=== PATIENT | female | born 1965 | race African-American/Black ===

== ENCOUNTER 2018-05-12 04:36 | Inpatient (IN) ==
[2018-05-12] MEDS ORDERED: ONDANSETRON 4 MG/2 ML VIAL IV STA (04:58)
[2018-05-12] MEDS ORDERED: MORPHINE 4 MG/1 ML VIAL IV STA (04:58)
[2018-05-12] MEDS ORDERED: ALUM/MAG/SIMETH/LIDO VISC 1:1 30 ML BOTTLE PO STA (04:58)
[2018-05-12] MEDS ORDERED: ASPIRIN 325 MG TABLET PO STA (04:58)
[2018-05-12] MEDS ORDERED: NITROGLYCERIN 2% OINT 1 INCH/GM PACK TOP STA ×2 (04:58→05:41)
[2018-05-12] MEDS ORDERED: PANTOPRAZOLE 40 MG VIAL IV STA (05:02)
[2018-05-12 05:18] LABS: Basophils % 0.3 % (0.0-0.8); Eosinophils # 0.1 10*3/uL (0.0-0.87); Eosinophils % 1.1 % (0.00-10.9); Hematocrit 38.4 VOL% (35.7-47.0); Hemoglobin 11.8 GM/DL (12.0-16.0); Immature Granulocytes % 0.4 %; Immature Granulocytes Absolute 0.03 #; Lymphocytes % 28.3 % (21.3-54.2); Mean Corpuscular HGB Conc 30.7 GM/DL (32-36); Mean Corpuscular Hemoglobin 24 PG (27-34); Mean Corpuscular Volume 76.5 FL (87-102); Monocytes # 0.4 10*3/uL (0.11-0.8); Neutrophils # 4.6 10*3/uL (1.4-7.4); Neutrophils % 64.9 % (38.7-73.9); Platelet Count 285 T/CUMM (130-400); Red Blood Count 5.02 MC/CUMM (3.8-5.5); Red Cell Distribution Width 13.5 % (9.3-17.3); White Blood Count 7.2 T/CUMM (4-12)
[2018-05-12 05:27] LABS: INR 1.1; PT Patient Result 11.6 SECS
[2018-05-12] MEDS ORDERED: MAGNESIUM SULF RIDER 2 GM in PREMIX 1 EACH IV STA (05:33)
[2018-05-12 05:35] LABS: Alanine Aminotransferase 28 U/L (13-56); Albumin 3.3 G/DL (3.4-5.0); Alkaline Phosphatase 64 U/L (45-117); Aspartate Amino Transferase 22 U/L (0-37); Bilirubin,Total < 0.39 MG/DL (0.2-1.0); Blood Urea Nitrogen 15 MG/DL (7-18); Calcium 9.4 MG/DL (8.5-10.1); Glucose 321 MG/DL (74-106); Osmolality,Calculated 285.8 MOS/KG (273-304); Sodium 137 MMOL/L (136-145); Total Protein 7.5 G/DL (6.4-8.3)
[2018-05-12] MEDS ORDERED: ENOXAPARIN 80 MG/0.8 ML SYRINGE SUBCUT STA (05:37)
[2018-05-12] MEDS ORDERED: INSULIN REGULAR 100 UNIT/ML SUBCUT STA (05:37)
[2018-05-12] MEDS: NITROGLYCERIN 2% OINT 1 INCH/GM PACK TOP STA ×2 (05:42→21:05)
[2018-05-12 05:49] LABS: Apearance,Urine Slightly Hazy (Clear); Bacteria,Urine Moderate /HPF (Few); Bilirubin,Urine Negative (Negative); Blood, Urine Negative (Negative); Glucose,Urine (UA) >=500 mg/dL (Negative); Ketones,Urine Negative (Negative); Nitrite,Urine Negative (Negative); Protein,Urine Negative; RBC,Urine 1 /HPF (0-4); Squamous Epithelial Cell,Urine Occasional /HPF (0-10); Urine Color Straw (Yellow); Urine Urobilinogen < 2.0 EU/DL (0.2-1.0); WBC,Urine 4 /HPF (0-6)
[2018-05-12 05:57] LABS: Barbiturates Screen,Urine Negative (Negative); Benzodiazepines Screen,Urine Negative (Negative); Cannabinoid Screen,Urine Negative (Negative); Opiate Screen,Urine Positive (Negative); Phencyclidine Screen,Urine Negative (Negative)
[2018-05-12] MEDS ORDERED: LACTULOSE 20 GM/30 ML UDCUP PO PRN (06:10)
[2018-05-12] MEDS ORDERED: ONDANSETRON 4 MG/2 ML VIAL IV PRN (06:10)
[2018-05-12] MEDS ORDERED: BISACODYL 5 MG TABLET PO PRN (06:10)
[2018-05-12] MEDS ORDERED: ALBUTEROL 2.5 MG/3 ML NEB RESP TX PRN (06:10)
[2018-05-12] MEDS ORDERED: DOCUSATE SODIUM 100 MG CAPSULE PO PRN (06:10)
[2018-05-12] MEDS ORDERED: GLUCAGON 1 MG VIAL IM PRN (06:20)
[2018-05-12] MEDS ORDERED: DEXTROSE 50% 25 GM/50 ML VIAL IV PRN (06:20)
[2018-05-12] MEDS: INSULIN REGULAR 100 UNIT/ML SUBCUT SCH ×4 (08:06→20:56)
[2018-05-12] MEDS ORDERED: CLOPIDOGREL 75 MG TABLET PO SCH (09:00)
[2018-05-12] MEDS: PANTOPRAZOLE 40 MG TABLET PO SCH (09:02)
[2018-05-12] MEDS: ROSUVASTATIN 20 MG TABLET PO SCH (09:16)
[2018-05-12] MEDS: LOSARTAN 25 MG TABLET PO SCH (09:16)
[2018-05-12] MEDS: CARVEDILOL 12.5 MG TABLET PO SCH (09:16)
[2018-05-12] MEDS: NITROGLYCERIN DRIP 50 MG/250 ML BOTTLE IV PRN (09:17)
[2018-05-12] MEDS ORDERED: POTASSIUM CHLORIDE RIDER 10 MEQ in PREMIX 1 EACH IV PRN (09:24)
[2018-05-12] MEDS ORDERED: SODIUM CHLORIDE 0.9% 1,000 ML IV SCH ×2 (09:30→11:00)
[2018-05-12] MEDS ORDERED: DIAZEPAM 5 MG TABLET PO ONE (10:00)
[2018-05-12] MEDS ORDERED: diphenhydrAMINE CAP 25 MG CAPSULE PO ONE (10:00)
[2018-05-12] MEDS ORDERED: NITROGLYCERIN DRIP 50 MG/250 ML BOTTLE IV ONE (10:06)
[2018-05-12] MEDS ORDERED: VERAPAMIL 5 MG/2 ML VIAL ONE (10:06)
[2018-05-12] MEDS ORDERED: MIDAZOLAM 2 MG/2 ML VIAL ONE (10:06)
[2018-05-12] MEDS ORDERED: LIDOCAINE 1% 20 ML VIAL ONE (10:06)
[2018-05-12] MEDS ORDERED: HYDROmorphone 2 MG/1 ML VIAL ONE (10:06)
[2018-05-12] MEDS: metFORMIN 500 MG TABLET PO SCH ×2 (11:55→20:54)
[2018-05-12] MEDS: sitaGLIPtin 25 MG TABLET PO SCH ×2 (11:55→20:55)
[2018-05-12] MEDS: ASPIRIN CHEW 81 MG TABLET PO SCH (12:06)
[2018-05-12] MEDS: NITROGLYCERIN 2% OINT 1 INCH/GM PACK TOP SCH ×3 (13:02→23:46)
[2018-05-12] MEDS: ACETAMINOPHEN 325 MG TABLET PO PRN (17:45)
[2018-05-12] MEDS: ENOXAPARIN 80 MG/0.8 ML SYRINGE SUBCUT SCH (18:20)
[2018-05-12] MEDS: MORPHINE 4 MG/1 ML VIAL IV PRN (23:45)
[2018-05-13] MEDS: NITROGLYCERIN DRIP 50 MG/250 ML BOTTLE IV PRN (01:04)
[2018-05-13 05:22] LABS: Basophils % 0.2 % (0.0-0.8); Eosinophils # 0.1 10*3/uL (0.0-0.87); Hematocrit 36.6 VOL% (35.7-47.0); Hemoglobin 11.4 GM/DL (12.0-16.0); Immature Granulocytes % 0.2 %; Immature Granulocytes Absolute 0.01 #; Lymphocytes # 2.4 10*3/uL (1.4-4.0); Lymphocytes % 41.3 % (21.3-54.2); Mean Corpuscular HGB Conc 31.1 GM/DL (32-36); Mean Corpuscular Hemoglobin 24 PG (27-34); Mean Corpuscular Volume 75.5 FL (87-102); Mean Platelet Volume 10.3 FL (9.6-12.0); Monocytes # 0.4 10*3/uL (0.11-0.8); Monocytes % 6.1 % (1.7-12.7); Neutrophils % 51.2 % (38.7-73.9); Platelet Count 277 T/CUMM (130-400); Red Blood Count 4.85 MC/CUMM (3.8-5.5); Red Cell Distribution Width 13.4 % (9.3-17.3); White Blood Count 5.9 T/CUMM (4-12)
[2018-05-13 05:51] LABS: Calcium 8.3 MG/DL (8.5-10.1); Osmolality,Calculated 288.4 MOS/KG (273-304)
[2018-05-13] MEDS: NITROGLYCERIN 2% OINT 1 INCH/GM PACK TOP SCH (06:03)
[2018-05-13] MEDS: ENOXAPARIN 80 MG/0.8 ML SYRINGE SUBCUT SCH ×2 (06:03→18:14)
[2018-05-13 06:41] LABS: Risk Ratio 4.63
[2018-05-13] MEDS: INSULIN REGULAR 100 UNIT/ML SUBCUT SCH ×4 (09:19→20:36)
[2018-05-13] MEDS: PANTOPRAZOLE 40 MG TABLET PO SCH (09:20)
[2018-05-13] MEDS: LOSARTAN 25 MG TABLET PO SCH (09:20)
[2018-05-13] MEDS: ROSUVASTATIN 20 MG TABLET PO SCH (09:20)
[2018-05-13] MEDS: ASPIRIN CHEW 81 MG TABLET PO SCH (09:20)
[2018-05-13] MEDS: CARVEDILOL 12.5 MG TABLET PO SCH (09:20)
[2018-05-13] MEDS: FENOFIBRATE 160 MG TABLET PO SCH (10:22)
[2018-05-13] MEDS: sitaGLIPtin 25 MG TABLET PO SCH ×2 (10:23→20:36)
[2018-05-13] MEDS ORDERED: DEXTROSE 50% 25 GM/50 ML VIAL IV PRN (20:00)
[2018-05-13] MEDS ORDERED: GLUCAGON 1 MG VIAL IM PRN (20:00)
[2018-05-13] MEDS: ACETAMINOPHEN 325 MG TABLET PO PRN (21:49)
[2018-05-14] MEDS: MORPHINE 4 MG/1 ML VIAL IV PRN ×3 (00:35→11:15)
[2018-05-14 03:55] LABS: Basophils % 0.6 % (0.0-0.8); Eosinophils # 0.1 10*3/uL (0.0-0.87); Eosinophils % 1.6 % (0.00-10.9); Hematocrit 36.3 VOL% (35.7-47.0); Hemoglobin 11.3 GM/DL (12.0-16.0); Immature Granulocytes % 0.2 %; Immature Granulocytes Absolute 0.01 #; Lymphocytes # 2.4 10*3/uL (1.4-4.0); Lymphocytes % 46.9 % (21.3-54.2); Mean Corpuscular HGB Conc 31.1 GM/DL (32-36); Mean Corpuscular Hemoglobin 24 PG (27-34); Mean Corpuscular Volume 76.1 FL (87-102); Mean Platelet Volume 10.1 FL (9.6-12.0); Monocytes # 0.3 10*3/uL (0.11-0.8); Monocytes % 6.4 % (1.7-12.7); Neutrophils # 2.2 10*3/uL (1.4-7.4); Neutrophils % 44.3 % (38.7-73.9); Platelet Count 285 T/CUMM (130-400); Red Blood Count 4.77 MC/CUMM (3.8-5.5)
[2018-05-14 04:00] LABS: ABG HCO3 29.3 MMOL/L (20-26); ABG PCO2 46.8 MM HG (35-48); ABG PH 7.414 (7.35-7.45); ABG PO2 86.5 MM HG (80-95); ABG TCO2 30.7 MMOL/L (23-27); Allen Test Positive; Pt O2 Delivery Device Room Air
[2018-05-14 04:21] LABS: Calcium 8.7 MG/DL (8.5-10.1); Osmolality,Calculated 284.4 MOS/KG (273-304); Potassium 3.6 MMOL/L (3.5-5.1)
[2018-05-14] MEDS: ENOXAPARIN 80 MG/0.8 ML SYRINGE SUBCUT SCH ×2 (06:17→17:49)
[2018-05-14] MEDS: NITROGLYCERIN DRIP 50 MG/250 ML BOTTLE IV PRN (06:45)
[2018-05-14] MEDS: SODIUM CHLORIDE 0.9% 1,000 ML IV SCH (07:48)
[2018-05-14] MEDS: INSULIN REGULAR 100 UNIT/ML SUBCUT SCH ×4 (09:41→21:09)
[2018-05-14] MEDS: CARVEDILOL 12.5 MG TABLET PO SCH (09:42)
[2018-05-14] MEDS: FENOFIBRATE 160 MG TABLET PO SCH (09:42)
[2018-05-14] MEDS: PANTOPRAZOLE 40 MG TABLET PO SCH (09:42)
[2018-05-14] MEDS: LOSARTAN 25 MG TABLET PO SCH (09:42)
[2018-05-14] MEDS: ASPIRIN CHEW 81 MG TABLET PO SCH (09:42)
[2018-05-14] MEDS: sitaGLIPtin 25 MG TABLET PO SCH ×2 (09:42→21:09)
[2018-05-14] MEDS: ROSUVASTATIN 20 MG TABLET PO SCH (09:42)
[2018-05-14] MEDS ORDERED: CARVEDILOL 25 MG TABLET PO SCH (10:15)
[2018-05-14] MEDS ORDERED: LOSARTAN 25 MG TABLET PO SCH (10:15)
[2018-05-14] MEDS: ISOSORBIDE MONONITRATE 60 MG TABLET PO SCH (10:52)
[2018-05-14] MEDS: RANOLAZINE 500 MG TABLET PO SCH ×2 (10:52→21:09)
[2018-05-14] MEDS ORDERED: LOSARTAN 25 MG TABLET PO ONE (11:00)
[2018-05-14] MEDS ORDERED: CARVEDILOL 12.5 MG TABLET PO ONE (11:00)
[2018-05-15] MEDS: MORPHINE 4 MG/1 ML VIAL IV PRN ×3 (01:06→22:10)
[2018-05-15 04:02] LABS: Basophils % 0.3 % (0.0-0.8); Eosinophils # 0.1 10*3/uL (0.0-0.87); Eosinophils % 1.5 % (0.00-10.9); Hematocrit 37.2 VOL% (35.7-47.0); Hemoglobin 11.5 GM/DL (12.0-16.0); Immature Granulocytes % 0.2 %; Immature Granulocytes Absolute 0.01 #; Lymphocytes # 2.7 10*3/uL (1.4-4.0); Lymphocytes % 45.1 % (21.3-54.2); Mean Corpuscular HGB Conc 30.9 GM/DL (32-36); Mean Corpuscular Hemoglobin 24 PG (27-34); Mean Corpuscular Volume 76.1 FL (87-102); Mean Platelet Volume 10.1 FL (9.6-12.0); Monocytes # 0.4 10*3/uL (0.11-0.8); Monocytes % 7.1 % (1.7-12.7); Neutrophils # 2.7 10*3/uL (1.4-7.4); Neutrophils % 45.8 % (38.7-73.9); Platelet Count 286 T/CUMM (130-400); Red Blood Count 4.89 MC/CUMM (3.8-5.5); Red Cell Distribution Width 13.1 % (9.3-17.3); White Blood Count 5.9 T/CUMM (4-12)
[2018-05-15 04:43] LABS: Calcium 8.9 MG/DL (8.5-10.1); Osmolality,Calculated 284.3 MOS/KG (273-304); Potassium 3.7 MMOL/L (3.5-5.1)
[2018-05-15] MEDS: ENOXAPARIN 80 MG/0.8 ML SYRINGE SUBCUT SCH ×2 (06:14→17:29)
[2018-05-15] MEDS ORDERED: NITROGLYCERIN SL 0.4 MG TABLET SL PRN (07:57)
[2018-05-15] MEDS: INSULIN REGULAR 100 UNIT/ML SUBCUT SCH ×4 (08:08→20:10)
[2018-05-15] MEDS: LOSARTAN 50 MG TABLET PO SCH (08:22)
[2018-05-15] MEDS: RANOLAZINE 500 MG TABLET PO SCH ×2 (08:22→20:10)
[2018-05-15] MEDS: PANTOPRAZOLE 40 MG TABLET PO SCH (08:22)
[2018-05-15] MEDS: ROSUVASTATIN 20 MG TABLET PO SCH (08:22)
[2018-05-15] MEDS: sitaGLIPtin 25 MG TABLET PO SCH ×2 (08:23→20:09)
[2018-05-15] MEDS: ASPIRIN CHEW 81 MG TABLET PO SCH (08:23)
[2018-05-15] MEDS: CLORAZEPATE 3.75 MG TABLET PO PRN ×2 (08:24→22:33)
[2018-05-15] MEDS: FENOFIBRATE 160 MG TABLET PO SCH (08:46)
[2018-05-15] MEDS: ISOSORBIDE MONONITRATE 60 MG TABLET PO SCH (08:48)
[2018-05-15] MEDS ORDERED: CARVEDILOL 25 MG TABLET PO SCH (09:00)
[2018-05-15] MEDS ORDERED: MAGNESIUM SULF RIDER 2 GM in PREMIX 1 EACH IV ONE (10:38)
[2018-05-15] MEDS ORDERED: CHLORHEXIDINE 4% SOLN 118 ML BOTTLE TOP SCH (15:00)
[2018-05-15] MEDS: CARVEDILOL 25 MG TABLET PO SCH (20:10)
[2018-05-16 04:21] LABS: Basophils % 0.6 % (0.0-0.8); Eosinophils # 0.1 10*3/uL (0.0-0.87); Eosinophils % 1.7 % (0.00-10.9); Hematocrit 38.1 VOL% (35.7-47.0); Hemoglobin 11.5 GM/DL (12.0-16.0); Immature Granulocytes % 0.4 %; Immature Granulocytes Absolute 0.02 #; Lymphocytes # 2.3 10*3/uL (1.4-4.0); Lymphocytes % 43.2 % (21.3-54.2); Mean Corpuscular HGB Conc 30.2 GM/DL (32-36); Mean Corpuscular Hemoglobin 23 PG (27-34); Mean Corpuscular Volume 76.5 FL (87-102); Monocytes # 0.4 10*3/uL (0.11-0.8); Monocytes % 6.8 % (1.7-12.7); Neutrophils # 2.5 10*3/uL (1.4-7.4); Neutrophils % 47.3 % (38.7-73.9); Platelet Count 248 T/CUMM (130-400); Red Blood Count 4.98 MC/CUMM (3.8-5.5); Red Cell Distribution Width 13.2 % (9.3-17.3); White Blood Count 5.3 T/CUMM (4-12)
[2018-05-16 04:41] LABS: Calcium 9.1 MG/DL (8.5-10.1); Osmolality,Calculated 280.7 MOS/KG (273-304); Potassium 3.8 MMOL/L (3.5-5.1)
[2018-05-16] MEDS: ENOXAPARIN 80 MG/0.8 ML SYRINGE SUBCUT SCH (05:49)
[2018-05-16] MEDS: INSULIN REGULAR 100 UNIT/ML SUBCUT SCH ×4 (08:47→21:30)
[2018-05-16] MEDS: CARVEDILOL 25 MG TABLET PO SCH ×2 (08:48→21:29)
[2018-05-16] MEDS: ASPIRIN CHEW 81 MG TABLET PO SCH (08:48)
[2018-05-16] MEDS: LOSARTAN 50 MG TABLET PO SCH (08:48)
[2018-05-16] MEDS: sitaGLIPtin 25 MG TABLET PO SCH ×2 (08:49→21:29)
[2018-05-16] MEDS: ROSUVASTATIN 20 MG TABLET PO SCH (08:49)
[2018-05-16] MEDS: ISOSORBIDE MONONITRATE 60 MG TABLET PO SCH (08:49)
[2018-05-16] MEDS: RANOLAZINE 500 MG TABLET PO SCH ×2 (08:50→21:29)
[2018-05-16] MEDS: INSULIN GLARGINE 100 UNIT/ML SUBCUT SCH (08:50)
[2018-05-16] MEDS: PANTOPRAZOLE 40 MG TABLET PO SCH (08:50)
[2018-05-16] MEDS: FENOFIBRATE 160 MG TABLET PO SCH (08:58)
[2018-05-16] MEDS: ACETAMINOPHEN 325 MG TABLET PO PRN (13:30)
[2018-05-16] MEDS: CHLORHEXIDINE 4% SOLN 118 ML BOTTLE TOP SCH ×2 (14:18→21:31)
[2018-05-16] MEDS: MORPHINE 4 MG/1 ML VIAL IV PRN (21:29)
[2018-05-16] MEDS: CHLORHEXIDINE 0.12% ORAL RINSE 60 ML BOTTLE SWISH/SPIT SCH (21:31)
[2018-05-17 04:58] LABS: Basophils % 0.4 % (0.0-0.8); Eosinophils # 0.1 10*3/uL (0.0-0.87); Eosinophils % 1.5 % (0.00-10.9); Hemoglobin 10.4 GM/DL (12.0-16.0); Immature Granulocytes % 0.4 %; Immature Granulocytes Absolute 0.02 #; Lymphocytes % 43.4 % (21.3-54.2); Mean Corpuscular HGB Conc 29.7 GM/DL (32-36); Mean Corpuscular Hemoglobin 23 PG (27-34); Mean Corpuscular Volume 77.8 FL (87-102); Mean Platelet Volume 10.2 FL (9.6-12.0); Monocytes # 0.3 10*3/uL (0.11-0.8); Monocytes % 7.5 % (1.7-12.7); Neutrophils # 2.1 10*3/uL (1.4-7.4); Neutrophils % 46.8 % (38.7-73.9); Platelet Count 258 T/CUMM (130-400); Red Cell Distribution Width 13.2 % (9.3-17.3); White Blood Count 4.6 T/CUMM (4-12)
[2018-05-17] MEDS ORDERED: CEFUROXIME INJ 1,500 MG in SYRINGE 1 EACH IV ONE (05:00)
[2018-05-17] MEDS ORDERED: DIAZEPAM 5 MG TABLET PO ONE (05:00)
[2018-05-17 05:16] LABS: Calcium 8.7 MG/DL (8.5-10.1); Osmolality,Calculated 286.4 MOS/KG (273-304); Potassium 3.8 MMOL/L (3.5-5.1)
[2018-05-17] MEDS ORDERED: PAPAVERINE 60 MG/2 ML VIAL ONE (05:22)
[2018-05-17] MEDS ORDERED: VANCOMYCIN 1,000 MG VIAL ONE (05:23)
[2018-05-17] MEDS: CHLORHEXIDINE 4% SOLN 118 ML BOTTLE TOP SCH ×2 (05:34→08:56)
[2018-05-17] MEDS: PANTOPRAZOLE 40 MG TABLET PO SCH ×2 (05:52→08:56)
[2018-05-17] MEDS: CHLORHEXIDINE 0.12% ORAL RINSE 60 ML BOTTLE SWISH/SPIT SCH ×2 (05:52→08:56)
[2018-05-17] MEDS: RANOLAZINE 500 MG TABLET PO SCH ×2 (05:52→08:56)
[2018-05-17] MEDS: CARVEDILOL 25 MG TABLET PO SCH ×2 (05:52→08:55)
[2018-05-17] MEDS ORDERED: NITROPRUSSIDE 50 MG/2 ML VIAL ONE (07:37)
[2018-05-17] MEDS ORDERED: POTASSIUM CHLORIDE RIDER 100 ML IV ONE (07:37)
[2018-05-17] MEDS ORDERED: ALBUMIN 5% 12.5 GM/250 ML VIAL IV ONE (07:37)
[2018-05-17] MEDS ORDERED: CALCIUM CHLORIDE 1,000 MG/10 ML SYRINGE IV ONE (07:37)
[2018-05-17] MEDS ORDERED: PHENYLEPHRINE DRIP 40 MG/250 ML PREMIX IV ONE (07:37)
[2018-05-17 07:43] LABS: ABG Base Excess 1.6 MMOL/L (-2.5-2.5); ABG HCO3 25.9 MMOL/L (20-26); ABG Oxygen Saturation 99.4 % (95-100); ABG PCO2 42.6 MM HG (35-48); ABG PH 7.403 (7.35-7.45); ABG TCO2 24.2 MMOL/L (23-27); Glucose Heart Surgery 274 MG/DL (74-106); Ionized Calcium Arterial 1.12 MMOL/L (1.21-1.46); PCO2 Patient Temp Arterial 42.6 MMHG; PH Patient Temp Arterial 7.403; Patient Temperature 37 CELCIUS; Potassium Heart/CVR 3.8 MMOL/L (3.5-5.1); Sodium Heart/CVR 140 MMOL/L (135-145)
[2018-05-17] MEDS: INSULIN REGULAR 100 UNIT/ML SUBCUT SCH ×2 (08:54→12:49)
[2018-05-17 08:55] LABS: Apearance,Urine CLEAR (Clear); Bilirubin,Urine Negative (Negative); Blood, Urine Negative (Negative); Glucose,Urine (UA) >=500 mg/dL (Negative); Hyaline Casts,Urine 1 /LPF (0-3); Ketones,Urine Negative (Negative); Mucus,Urine Occasional /LPF (Occasional); Nitrite,Urine Negative (Negative); Protein,Urine Negative; RBC,Urine <1 /HPF (0-4); Squamous Epithelial Cell,Urine Occasional /HPF (0-10); Urine Color Yellow (Yellow); Urine Specific Gravity 1.027 (1.001-1.035); Urine Urobilinogen < 2.0 EU/DL (0.2-1.0); WBC,Urine 1 /HPF (0-6)
[2018-05-17] MEDS: ASPIRIN CHEW 81 MG TABLET PO SCH (08:55)
[2018-05-17] MEDS: ROSUVASTATIN 20 MG TABLET PO SCH (08:55)
[2018-05-17] MEDS: LOSARTAN 50 MG TABLET PO SCH (08:55)
[2018-05-17] MEDS: sitaGLIPtin 25 MG TABLET PO SCH (08:56)
[2018-05-17] MEDS: ISOSORBIDE MONONITRATE 60 MG TABLET PO SCH (08:56)
[2018-05-17] MEDS: INSULIN GLARGINE 100 UNIT/ML SUBCUT SCH (08:56)
[2018-05-17] MEDS: FENOFIBRATE 160 MG TABLET PO SCH (08:56)
[2018-05-17 09:41] LABS: Hematocrit Heart Surgery 20.2 PERCENT (37-47); PH Patient Temp Venous 7.446; PO2 Patient Temp Venous 33.4 MM HG; Potassium Heart/CVR 4.9 MMOL/L (3.5-5.1); VBG Base Excess 2.4 MEQ/L (0-4); VBG HCO3 26.3 MEQ/L (24-28); VBG Oxygen Saturation 76.3 %; VBG PCO2 43.9 MMHG (41-51); VBG PH 7.402; VBG PO2 41.1 MMHG (17-40)
[2018-05-17 09:42] LABS: Hemoglobin Heart Surgery 6.4 G/DL (12.0-16.0)
[2018-05-17 10:09] LABS: Hemoglobin Heart Surgery 7.4 G/DL (12.0-16.0); PCO2 Patient Temp Venous 36.5 MM HG; PH Patient Temp Venous 7.473; PO2 Patient Temp Venous 35.3 MM HG; Potassium Heart/CVR 4.3 MMOL/L (3.5-5.1); VBG Base Excess 3.3 MEQ/L (0-4); VBG HCO3 27.1 MEQ/L (24-28); VBG PCO2 42.2 MMHG (41-51); VBG PH 7.428; VBG PO2 43.4 MMHG (17-40)
[2018-05-17 10:39] LABS: Hemoglobin Heart Surgery 9.7 G/DL (12.0-16.0); PCO2 Patient Temp Venous 43.9 MM HG; PH Patient Temp Venous 7.417; PO2 Patient Temp Venous 41.7 MM HG; Potassium Heart/CVR 4.3 MMOL/L (3.5-5.1); VBG Base Excess 3.3 MEQ/L (0-4); VBG HCO3 27.1 MEQ/L (24-28); VBG Oxygen Saturation 78.2 %; VBG PCO2 43.9 MMHG (41-51); VBG PH 7.417; VBG PO2 41.7 MMHG (17-40)
[2018-05-17 11:04] LABS: ABG Base Excess 1.4 MMOL/L (-2.5-2.5); ABG HCO3 25.7 MMOL/L (20-26); ABG Oxygen Saturation 99.5 % (95-100); ABG PCO2 41.4 MM HG (35-48); ABG PH 7.408 (7.35-7.45); Glucose Heart Surgery 325 MG/DL (74-106); Hematocrit Heart Surgery 28.5 PERCENT (37-47); Hemoglobin Heart Surgery 9.2 G/DL (12.0-16.0); Ionized Calcium Arterial 1.14 MMOL/L (1.21-1.46); PCO2 Patient Temp Arterial 41.4 MMHG; PH Patient Temp Arterial 7.408; Patient Temperature 37 CELCIUS; Potassium Heart/CVR 3.9 MMOL/L (3.5-5.1); Sodium Heart/CVR 140 MMOL/L (135-145)
[2018-05-17] MEDS ORDERED: ALBUMIN 25% 25 GM/100 ML VIAL IV ONE (11:06)
[2018-05-17] MEDS ORDERED: PHENYLEPHRINE 1 MG/10 ML SYRINGE IV ONE ×2 (11:06→12:09)
[2018-05-17] MEDS ORDERED: FUROSEMIDE 20 MG/2 ML VIAL ONE (11:06)
[2018-05-17] MEDS ORDERED: DEXTROSE 5% KCL 20 MEQ 20 MEQ/1,000 ML BAG IV ONE (11:06)
[2018-05-17] MEDS ORDERED: PROTAMINE SULFATE 250 MG/25 ML VIAL IV ONE (11:06)
[2018-05-17] MEDS ORDERED: SODIUM BICARBONATE 50 MEQ/50 ML SYRINGE IV ONE (11:06)
[2018-05-17] MEDS ORDERED: MANNITOL 12.5 GM/50 ML VIAL IV ONE (11:06)
[2018-05-17] MEDS ORDERED: methylPREDNISolone SOD SUC 1,000 MG/8 ML VIAL ONE (11:06)
[2018-05-17] MEDS ORDERED: HEPARIN 10,000 UNIT/10 ML VIAL ONE (11:06)
[2018-05-17] MEDS ORDERED: PHENYLEPHRINE DRIP 40 MG/250 ML PREMIX IV PRN (11:56)
[2018-05-17] MEDS ORDERED: CALCIUM CHLORIDE 1,000 MG/10 ML SYRINGE IV PRN (11:56)
[2018-05-17] MEDS ORDERED: VECURONIUM 10 MG VIAL IV PRN ×2 (11:56)
[2018-05-17] MEDS ORDERED: POTASSIUM CHLORIDE RIDER 10 MEQ in PREMIX 1 EACH IV PRN (11:56)
[2018-05-17] MEDS ORDERED: ACETAMINOPHEN 650 MG SUPP RECTAL PRN (11:56)
[2018-05-17] MEDS ORDERED: MORPHINE 10 MG/1 ML VIAL IV PRN (11:56)
[2018-05-17] MEDS ORDERED: LACTATED RINGERS 250 ML IV PRN (11:56)
[2018-05-17] MEDS ORDERED: MAGNESIUM SULF RIDER 4 GM in PREMIX 1 EACH IV PRN (11:56)
[2018-05-17] MEDS ORDERED: DEXTROSE 50% 25 GM/50 ML VIAL IV PRN ×2 (11:56)
[2018-05-17] MEDS ORDERED: ONDANSETRON 4 MG/2 ML VIAL IV PRN (11:56)
[2018-05-17] MEDS ORDERED: NITROPRUSSIDE 100 MG in DEXTROSE 5% 250 ML IV PRN (11:56)
[2018-05-17] MEDS ORDERED: INSULIN REGULAR 100 UNIT/ML IV PRN (11:56)
[2018-05-17] MEDS ORDERED: MIDAZOLAM 10 MG/2 ML VIAL IV PRN (11:56)
[2018-05-17] MEDS ORDERED: INSULIN REGULAR 100 UNIT/ML IV ONE (11:56)
[2018-05-17] MEDS ORDERED: SODIUM CHLORIDE 0.45% 1,000 ML IV SCH ×2 (12:00)
[2018-05-17] MEDS ORDERED: PROTAMINE SULFATE 50 MG/5 ML VIAL IV ONE ×2 (12:00→12:02)
[2018-05-17] MEDS ORDERED: SUFentanil 250 MCG/5 ML AMP ONE (12:07)
[2018-05-17] MEDS ORDERED: CALCIUM CHLORIDE 1,000 MG/10 ML VIAL IV ONE (12:07)
[2018-05-17] MEDS ORDERED: SUFentanil 50 MCG/ML AMP ONE (12:07)
[2018-05-17] MEDS ORDERED: SEVOFLURANE 1 UNIT/15 MINUTE INH ONE (12:07)
[2018-05-17] MEDS ORDERED: MIDAZOLAM 10 MG/2 ML VIAL ONE (12:08)
[2018-05-17] MEDS ORDERED: ETOMIDATE 40 MG/20 ML VIAL IV ONE (12:08)
[2018-05-17] MEDS ORDERED: PHENYLEPHRINE 10 MG/1 ML VIAL IV ONE (12:08)
[2018-05-17] MEDS ORDERED: MINERAL OIL/PETROLATUM OPH OINT 3.5 GM TUBE ONE (12:08)
[2018-05-17] MEDS ORDERED: VECURONIUM 10 MG VIAL IV ONE (12:08)
[2018-05-17] MEDS ORDERED: LACTATED RINGERS 1,000 ML IV ONE ×2 (12:09→13:44)
[2018-05-17] MEDS ORDERED: AMINOCAPROIC ACID 5,000 MG/20 ML VIAL IV ONE (12:09)
[2018-05-17] MEDS ORDERED: SODIUM CHLORIDE 0.9% 250 ML IV ONE (12:09)
[2018-05-17] MEDS ORDERED: SODIUM CHLORIDE 0.9% 1,000 ML IV ONE (12:09)
[2018-05-17 12:11] LABS: ABG Base Excess 3.9 MMOL/L (-2.5-2.5); ABG HCO3 27.9 MMOL/L (20-26); ABG Oxygen Saturation 97.7 % (95-100); ABG PCO2 41.5 MM HG (35-48); ABG PH 7.443 (7.35-7.45); ABG TCO2 25.8 MMOL/L (23-27); Glucose Heart Surgery 338 MG/DL (74-106); Hematocrit Heart Surgery 30.7 PERCENT (37-47); Hemoglobin Heart Surgery 9.9 G/DL (12.0-16.0); Potassium Heart/CVR 3.2 MMOL/L (3.5-5.1)
[2018-05-17 12:14] LABS: Basophils % 0.2 % (0.0-0.8); Eosinophils % 0.4 % (0.00-10.9); Hematocrit 30.5 VOL% (35.7-47.0); Hemoglobin 9.7 GM/DL (12.0-16.0); Immature Granulocytes % 0.8 %; Immature Granulocytes Absolute 0.07 #; Lymphocytes # 1.3 10*3/uL (1.4-4.0); Lymphocytes % 14.4 % (21.3-54.2); Mean Corpuscular HGB Conc 31.8 GM/DL (32-36); Mean Corpuscular Hemoglobin 25 PG (27-34); Mean Corpuscular Volume 77.2 FL (87-102); Monocytes # 0.4 10*3/uL (0.11-0.8); Monocytes % 4.3 % (1.7-12.7); Neutrophils # 7.3 10*3/uL (1.4-7.4); Neutrophils % 79.9 % (38.7-73.9); Platelet Count 244 T/CUMM (130-400); Red Blood Count 3.95 MC/CUMM (3.8-5.5); Red Cell Distribution Width 13.8 % (9.3-17.3); White Blood Count 9.1 T/CUMM (4-12)
[2018-05-17 12:21] LABS: INR 1.2; PT Patient Result 12.8 SECS; Partial Thromboplastin Time 28.9 SECS (0-40)
[2018-05-17 12:33] LABS: Albumin 3.3 G/DL (3.4-5.0); Bilirubin,Total 0.6 MG/DL (0.2-1.0); Calcium 9.2 MG/DL (8.5-10.1); Potassium 3.3 MMOL/L (3.5-5.1); Total Protein 6.4 G/DL (6.4-8.3)
[2018-05-17 12:39] LABS: CKMB % 5.2 %
[2018-05-17 12:40] LABS: Troponin I Only 3.7 NG/ML (0.00-0.045)
[2018-05-17] MEDS: INSULIN REGULAR DRIP 100 ML IV SCH (12:41)
[2018-05-17] MEDS: POTASSIUM CHLORIDE RIDER 20 MEQ in PREMIX 1 EACH IV PRN ×6 (12:41→18:13)
[2018-05-17] MEDS: KETOROLAC 30 MG/1 ML VIAL IV SCH ×2 (12:59→17:36)
[2018-05-17] MEDS: MORPHINE 4 MG/1 ML VIAL IV PRN ×2 (13:54→17:36)
[2018-05-17] MEDS: LACTATED RINGERS 1,000 ML IV PRN ×4 (13:54→22:30)
[2018-05-17 14:33] LABS: ABG Base Excess 2.3 MMOL/L (-2.5-2.5); ABG HCO3 26.4 MMOL/L (20-26); ABG Oxygen Saturation 97.1 % (95-100); ABG PCO2 42.5 MM HG (35-48); ABG PH 7.413 (7.35-7.45); ABG PO2 89.8 MM HG (80-95); ABG TCO2 24.7 MMOL/L (23-27); Glucose Heart Surgery 260 MG/DL (74-106); Hematocrit Heart Surgery 30.3 PERCENT (37-47); Hemoglobin Heart Surgery 9.8 G/DL (12.0-16.0); Potassium Heart/CVR 3.6 MMOL/L (3.5-5.1)
[2018-05-17] MEDS: MIDAZOLAM 2 MG/2 ML VIAL IV PRN ×2 (14:43→14:59)
[2018-05-17] MEDS: ALBUMIN 5% 12.5 GM in PREMIX 1 EACH IV PRN ×3 (15:28→16:20)
[2018-05-17] MEDS ORDERED: FUROSEMIDE 40 MG/4 ML VIAL IV ONE ×2 (15:47→23:45)
[2018-05-17 16:31] LABS: ABG Base Excess 2.3 MMOL/L (-2.5-2.5); ABG HCO3 26.5 MMOL/L (20-26); ABG Oxygen Saturation 98.8 % (95-100); ABG PCO2 41.7 MM HG (35-48); ABG PH 7.419 (7.35-7.45); ABG TCO2 24.5 MMOL/L (23-27); Glucose Heart Surgery 185 MG/DL (74-106); Hematocrit Heart Surgery 30.8 PERCENT (37-47); Potassium Heart/CVR 3.4 MMOL/L (3.5-5.1)
[2018-05-17] MEDS ORDERED: PROPOFOL 200 MG/20 ML VIAL IV ONE (17:40)
[2018-05-17] MEDS ORDERED: PROPOFOL 1,000 MG/100 ML BOTTLE IV ONE (17:41)
[2018-05-17] MEDS: PROPOFOL 1,000 MG/100 ML BOTTLE IV SCH ×2 (18:01→23:35)
[2018-05-17 18:05] LABS: ABG Base Excess 3.8 MMOL/L (-2.5-2.5); ABG HCO3 27.8 MMOL/L (20-26); ABG Oxygen Saturation 97.3 % (95-100); ABG PCO2 39.1 MM HG (35-48); ABG PO2 85.4 MM HG (80-95); ABG TCO2 25.3 MMOL/L (23-27); Glucose Heart Surgery 155 MG/DL (74-106); Hematocrit Heart Surgery 30.5 PERCENT (37-47); Hemoglobin Heart Surgery 9.9 G/DL (12.0-16.0); Potassium Heart/CVR 3.6 MMOL/L (3.5-5.1)
[2018-05-17] MEDS: CEFUROXIME INJ 1,500 MG in SYRINGE 1 EACH IV SCH (20:30)
[2018-05-17] MEDS ORDERED: CHLORHEXIDINE 0.12% ORAL RINSE 60 ML BOTTLE SWISH/SPIT SCH (21:00)
[2018-05-17] MEDS ORDERED: METOPROLOL TARTRATE 50 MG TABLET PO SCH (21:00)
[2018-05-17 22:26] LABS: CKMB % 3.4 %
[2018-05-17 22:40] LABS: Troponin I Only 19.9 NG/ML (0.00-0.045)
[2018-05-18] MEDS: KETOROLAC 30 MG/1 ML VIAL IV SCH ×5 (00:09→20:52)
[2018-05-18] MEDS: INSULIN REGULAR DRIP 100 ML IV SCH (02:25)
[2018-05-18] MEDS: PROPOFOL 1,000 MG/100 ML BOTTLE IV SCH (04:20)
[2018-05-18 04:35] LABS: ABG Base Excess 3.5 MMOL/L (-2.5-2.5); ABG Oxygen Saturation 93.8 % (95-100); ABG PH 7.528 (7.35-7.45); ABG PO2 69.8 MM HG (80-95); Glucose Heart Surgery 158 MG/DL (74-106); Potassium Heart/CVR 2.9 MMOL/L (3.5-5.1)
[2018-05-18 04:48] LABS: Basophils % 0.1 % (0.0-0.8); Hematocrit 28.5 VOL% (35.7-47.0); Hemoglobin 9.4 GM/DL (12.0-16.0); Immature Granulocytes % 0.5 %; Immature Granulocytes Absolute 0.06 #; Lymphocytes # 1.1 10*3/uL (1.4-4.0); Lymphocytes % 9.6 % (21.3-54.2); Mean Corpuscular Hemoglobin 25 PG (27-34); Mean Corpuscular Volume 74.8 FL (87-102); Mean Platelet Volume 10.5 FL (9.6-12.0); Monocytes # 0.7 10*3/uL (0.11-0.8); Monocytes % 5.8 % (1.7-12.7); Neutrophils # 9.9 10*3/uL (1.4-7.4); Platelet Count 238 T/CUMM (130-400); Red Blood Count 3.81 MC/CUMM (3.8-5.5); Red Cell Distribution Width 14.1 % (9.3-17.3); White Blood Count 11.8 T/CUMM (4-12)
[2018-05-18] MEDS: POTASSIUM CHLORIDE RIDER 20 MEQ in PREMIX 1 EACH IV PRN ×3 (05:06→08:37)
[2018-05-18 05:20] LABS: Alanine Aminotransferase 43 U/L (13-56); Albumin 3.6 G/DL (3.4-5.0); Alkaline Phosphatase 42 U/L (45-117); Aspartate Amino Transferase 133 U/L (0-37); Bilirubin,Direct < 0.100 MG/DL (0.0-0.20); Bilirubin,Total < 0.39 MG/DL (0.2-1.0); Blood Urea Nitrogen 9 MG/DL (7-18); CKMB % 2.5 %; Glucose 166 MG/DL (74-106); Sodium 143 MMOL/L (136-145); Total Protein 6.6 G/DL (6.4-8.3)
[2018-05-18 06:31] LABS: ABG Base Excess 2.9 MMOL/L (-2.5-2.5); ABG HCO3 26.9 MMOL/L (20-26); ABG Oxygen Saturation 95.6 % (95-100); ABG PCO2 35.5 MM HG (35-48); ABG PH 7.477 (7.35-7.45); ABG PO2 76.8 MM HG (80-95); ABG TCO2 23.9 MMOL/L (23-27); Glucose Heart Surgery 132 MG/DL (74-106); Hematocrit Heart Surgery 30.4 PERCENT (37-47); Hemoglobin Heart Surgery 9.8 G/DL (12.0-16.0); Potassium Heart/CVR 4.5 MMOL/L (3.5-5.1)
[2018-05-18] MEDS: MAGNESIUM SULF RIDER 2 GM in PREMIX 1 EACH IV PRN ×2 (06:38→08:35)
[2018-05-18 08:29] LABS: ABG Base Excess 3.2 MMOL/L (-2.5-2.5); ABG HCO3 26.4 MMOL/L (20-26); ABG Oxygen Saturation 92.7 % (95-100); ABG PCO2 34.9 MM HG (35-48); ABG PH 7.496 (7.35-7.45); ABG PO2 68.1 MM HG (80-95); ABG TCO2 27.4 MMOL/L (23-27); Glucose Heart Surgery 87 MG/DL (74-106); Hemoglobin Heart Surgery 10.2 G/DL (12.0-16.0); Potassium Heart/CVR 3.7 MMOL/L (3.5-5.1)
[2018-05-18] MEDS ORDERED: GLUCAGON 1 MG VIAL IM PRN ×2 (08:50)
[2018-05-18] MEDS ORDERED: DEXTROSE 50% 25 GM/50 ML VIAL IV PRN ×2 (08:50)
[2018-05-18] MEDS ORDERED: MAGNESIUM HYDROXIDE SUSP 30 ML UDCUP PO PRN (08:50)
[2018-05-18] MEDS ORDERED: oxyCODONE/ACETAMINOPHEN 5-325 MG TABLET PO PRN (08:50)
[2018-05-18] MEDS ORDERED: MAGNESIUM SULF RIDER 4 GM in PREMIX 1 EACH IV PRN (08:50)
[2018-05-18] MEDS ORDERED: ZALEPLON 5 MG CAPSULE PO PRN (08:50)
[2018-05-18] MEDS ORDERED: ONDANSETRON 4 MG/2 ML VIAL IV PRN (08:50)
[2018-05-18] MEDS ORDERED: MAGNESIUM SULF RIDER 2 GM in PREMIX 1 EACH IV PRN (08:50)
[2018-05-18] MEDS ORDERED: ACETAMINOPHEN 325 MG TABLET PO PRN (08:50)
[2018-05-18] MEDS ORDERED: ASPIRIN EC 81 MG TABLET PO SCH (09:00)
[2018-05-18] MEDS ORDERED: BUDESONIDE/FORMOTEROL 160-4.5 INHALER 6 GM INH PRN (09:30)
[2018-05-18] MEDS: CEFUROXIME INJ 1,500 MG in SYRINGE 1 EACH IV SCH ×3 (09:32→17:30)
[2018-05-18] MEDS: ASPIRIN CHEW 81 MG TABLET PO SCH (09:52)
[2018-05-18] MEDS: DOCUSATE SODIUM 100 MG CAPSULE PO SCH (09:52)
[2018-05-18] MEDS: PANTOPRAZOLE 40 MG TABLET PO SCH (09:53)
[2018-05-18] MEDS: CHLORHEXIDINE 0.12% ORAL RINSE 60 ML BOTTLE SWISH/SPIT SCH ×2 (09:53→21:31)
[2018-05-18] MEDS: FERROUS SULFATE 325 MG TABLET PO SCH (09:53)
[2018-05-18] MEDS: FENOFIBRATE 160 MG TABLET PO SCH (09:53)
[2018-05-18] MEDS: RANOLAZINE 500 MG TABLET PO SCH ×2 (09:53→20:54)
[2018-05-18] MEDS: CARVEDILOL 25 MG TABLET PO SCH ×2 (09:53→20:53)
[2018-05-18] MEDS: POTASSIUM CHLORIDE 20 MEQ TABLET PO PRN ×2 (09:54→12:28)
[2018-05-18] MEDS: ROSUVASTATIN 20 MG TABLET PO SCH (09:54)
[2018-05-18] MEDS: ALBUTEROL 2.5 MG/3 ML NEB RESP TX SCH ×3 (10:00→20:32)
[2018-05-18] MEDS: SODIUM CHLOR 0.45% KCL 20 MEQ 20 MEQ/1,000 ML BAG IV SCH (10:59)
[2018-05-18] MEDS: MORPHINE 4 MG/1 ML VIAL IV PRN ×2 (11:55→23:43)
[2018-05-18] MEDS: sitaGLIPtin 25 MG TABLET PO SCH ×2 (12:28→20:54)
[2018-05-18] MEDS: metFORMIN 500 MG TABLET PO SCH ×2 (12:28→20:52)
[2018-05-18] MEDS: INSULIN REGULAR 100 UNIT/ML SUBCUT SCH ×3 (14:00→21:30)
[2018-05-18] MEDS: ASCORBIC ACID 500 MG TABLET PO SCH (20:53)
[2018-05-19] MEDS: ALBUTEROL 2.5 MG/3 ML NEB RESP TX SCH ×7 (00:43→22:49)
[2018-05-19] MEDS: INSULIN REGULAR 100 UNIT/ML SUBCUT SCH ×6 (01:18→20:30)
[2018-05-19 04:27] LABS: Basophils % 0.1 % (0.0-0.8); Eosinophils % 0.1 % (0.00-10.9); Hematocrit 29.1 VOL% (35.7-47.0); Hemoglobin 9.2 GM/DL (12.0-16.0); Immature Granulocytes % 0.6 %; Immature Granulocytes Absolute 0.07 #; Lymphocytes # 1.7 10*3/uL (1.4-4.0); Lymphocytes % 14.5 % (21.3-54.2); Mean Corpuscular HGB Conc 31.6 GM/DL (32-36); Mean Corpuscular Hemoglobin 25 PG (27-34); Mean Corpuscular Volume 77.6 FL (87-102); Mean Platelet Volume 11.2 FL (9.6-12.0); Monocytes % 8.5 % (1.7-12.7); Neutrophils % 76.2 % (38.7-73.9); Platelet Count 198 T/CUMM (130-400); Red Blood Count 3.75 MC/CUMM (3.8-5.5); Red Cell Distribution Width 14.5 % (9.3-17.3); White Blood Count 11.8 T/CUMM (4-12)
[2018-05-19] MEDS: KETOROLAC 30 MG/1 ML VIAL IV SCH ×4 (04:36→20:31)
[2018-05-19 05:16] LABS: Alanine Aminotransferase 38 U/L (13-56); Albumin 3.2 G/DL (3.4-5.0); Alkaline Phosphatase 45 U/L (45-117); Aspartate Amino Transferase 68 U/L (0-37); Bilirubin,Direct < 0.100 MG/DL (0.0-0.20); Bilirubin,Indirect 0.3 MG/DL (0.0-1.0); Blood Urea Nitrogen 20 MG/DL (7-18); Calcium 8.8 MG/DL (8.5-10.1); Glucose 226 MG/DL (74-106); Osmolality,Calculated 292.1 MOS/KG (273-304); Potassium 4.4 MMOL/L (3.5-5.1); Sodium 142 MMOL/L (136-145); Total Protein 6.2 G/DL (6.4-8.3)
[2018-05-19] MEDS ORDERED: FUROSEMIDE 40 MG/4 ML VIAL IV ONE (06:00)
[2018-05-19] MEDS: SODIUM CHLORIDE 0.9% 1,000 ML IV SCH (07:58)
[2018-05-19] MEDS: DOCUSATE SODIUM 100 MG CAPSULE PO SCH (09:29)
[2018-05-19] MEDS: ASCORBIC ACID 500 MG TABLET PO SCH ×2 (09:29→20:30)
[2018-05-19] MEDS: ROSUVASTATIN 20 MG TABLET PO SCH (09:29)
[2018-05-19] MEDS: ASPIRIN CHEW 81 MG TABLET PO SCH (09:30)
[2018-05-19] MEDS: sitaGLIPtin 25 MG TABLET PO SCH ×2 (09:30→20:30)
[2018-05-19] MEDS: PANTOPRAZOLE 40 MG TABLET PO SCH (09:30)
[2018-05-19] MEDS: metFORMIN 500 MG TABLET PO SCH ×2 (09:30→20:30)
[2018-05-19] MEDS: FERROUS SULFATE 325 MG TABLET PO SCH (09:32)
[2018-05-19] MEDS: SPIRONOLACTONE 50 MG TABLET PO SCH (09:32)
[2018-05-19] MEDS: CARVEDILOL 25 MG TABLET PO SCH ×2 (09:32→21:42)
[2018-05-19] MEDS: FENOFIBRATE 160 MG TABLET PO SCH (09:33)
[2018-05-19] MEDS: CHLORHEXIDINE 0.12% ORAL RINSE 60 ML BOTTLE SWISH/SPIT SCH ×2 (09:33→20:30)
[2018-05-19] MEDS: RANOLAZINE 500 MG TABLET PO SCH ×2 (09:45→20:30)
[2018-05-19] MEDS: SODIUM CHLOR 0.45% KCL 20 MEQ 20 MEQ/1,000 ML BAG IV SCH (09:45)
[2018-05-19] MEDS: ALUMINUM/MAGNES/SIMETH MAX STR 30 ML UDCUP PO PRN (10:55)
[2018-05-20] MEDS: INSULIN REGULAR 100 UNIT/ML SUBCUT SCH ×7 (00:15→20:25)
[2018-05-20] MEDS: MORPHINE 4 MG/1 ML VIAL IV PRN (00:18)
[2018-05-20] MEDS: ALBUTEROL 2.5 MG/3 ML NEB RESP TX SCH ×4 (02:52→14:10)
[2018-05-20] MEDS: KETOROLAC 30 MG/1 ML VIAL IV SCH ×4 (03:12→20:25)
[2018-05-20 04:30] LABS: Basophils % 0.2 % (0.0-0.8); Eosinophils # 0.1 10*3/uL (0.0-0.87); Eosinophils % 0.7 % (0.00-10.9); Hematocrit 28.5 VOL% (35.7-47.0); Hemoglobin 8.7 GM/DL (12.0-16.0); Immature Granulocytes % 0.5 %; Immature Granulocytes Absolute 0.05 #; Lymphocytes # 2.7 10*3/uL (1.4-4.0); Lymphocytes % 24.2 % (21.3-54.2); Mean Corpuscular HGB Conc 30.5 GM/DL (32-36); Mean Corpuscular Hemoglobin 24 PG (27-34); Mean Corpuscular Volume 79.6 FL (87-102); Mean Platelet Volume 10.7 FL (9.6-12.0); Monocytes # 0.9 10*3/uL (0.11-0.8); Monocytes % 8.5 % (1.7-12.7); Neutrophils # 7.3 10*3/uL (1.4-7.4); Neutrophils % 65.9 % (38.7-73.9); Platelet Count 205 T/CUMM (130-400); Red Blood Count 3.58 MC/CUMM (3.8-5.5); Red Cell Distribution Width 14.5 % (9.3-17.3); White Blood Count 11.1 T/CUMM (4-12)
[2018-05-20 05:16] LABS: Alanine Aminotransferase 39 U/L (13-56); Albumin 2.8 G/DL (3.4-5.0); Alkaline Phosphatase 54 U/L (45-117); Aspartate Amino Transferase 43 U/L (0-37); Bilirubin,Indirect 0.3 MG/DL (0.0-1.0); Blood Urea Nitrogen 17 MG/DL (7-18); Calcium 8.2 MG/DL (8.5-10.1); Glucose 100 MG/DL (74-106); Osmolality,Calculated 287.8 MOS/KG (273-304); Sodium 144 MMOL/L (136-145)
[2018-05-20] MEDS: FENOFIBRATE 160 MG TABLET PO SCH (08:37)
[2018-05-20] MEDS: DOCUSATE SODIUM 100 MG CAPSULE PO SCH (08:38)
[2018-05-20] MEDS: sitaGLIPtin 25 MG TABLET PO SCH ×2 (08:38→20:24)
[2018-05-20] MEDS: metFORMIN 500 MG TABLET PO SCH ×2 (08:38→20:24)
[2018-05-20] MEDS: FERROUS SULFATE 325 MG TABLET PO SCH (08:39)
[2018-05-20] MEDS: ASCORBIC ACID 500 MG TABLET PO SCH ×2 (08:39→20:24)
[2018-05-20] MEDS: ROSUVASTATIN 20 MG TABLET PO SCH (08:39)
[2018-05-20] MEDS: PANTOPRAZOLE 40 MG TABLET PO SCH (08:39)
[2018-05-20] MEDS: CARVEDILOL 25 MG TABLET PO SCH ×2 (08:39→20:25)
[2018-05-20] MEDS: ASPIRIN CHEW 81 MG TABLET PO SCH (08:39)
[2018-05-20] MEDS: RANOLAZINE 500 MG TABLET PO SCH (08:40)
[2018-05-20] MEDS: SPIRONOLACTONE 50 MG TABLET PO SCH (08:41)
[2018-05-20] MEDS: CHLORHEXIDINE 0.12% ORAL RINSE 60 ML BOTTLE SWISH/SPIT SCH ×2 (08:46→20:25)
[2018-05-21] MEDS: ALBUTEROL 2.5 MG/3 ML NEB RESP TX SCH ×8 (00:20→23:10)
[2018-05-21] MEDS: INSULIN REGULAR 100 UNIT/ML SUBCUT SCH ×6 (00:45→21:25)
[2018-05-21] MEDS: KETOROLAC 30 MG/1 ML VIAL IV SCH (04:43)
[2018-05-21 05:20] LABS: Calcium 8.5 MG/DL (8.5-10.1)
[2018-05-21] MEDS: ALUMINUM/MAGNES/SIMETH MAX STR 30 ML UDCUP PO PRN (05:52)
[2018-05-21 07:06] LABS: Basophils % 0.1 % (0.0-0.8); Eosinophils # 0.1 10*3/uL (0.0-0.87); Eosinophils % 1.4 % (0.00-10.9); Hematocrit 27.1 VOL% (35.7-47.0); Hemoglobin 8.4 GM/DL (12.0-16.0); Immature Granulocytes % 0.4 %; Immature Granulocytes Absolute 0.03 #; Lymphocytes # 2.2 10*3/uL (1.4-4.0); Lymphocytes % 28.1 % (21.3-54.2); Mean Corpuscular Hemoglobin 25 PG (27-34); Mean Corpuscular Volume 79.5 FL (87-102); Mean Platelet Volume 10.8 FL (9.6-12.0); Monocytes # 0.7 10*3/uL (0.11-0.8); Monocytes % 8.4 % (1.7-12.7); Neutrophils # 4.7 10*3/uL (1.4-7.4); Neutrophils % 61.6 % (38.7-73.9); Platelet Count 220 T/CUMM (130-400); Red Blood Count 3.41 MC/CUMM (3.8-5.5); White Blood Count 7.7 T/CUMM (4-12)
[2018-05-21] MEDS: PANTOPRAZOLE 40 MG TABLET PO SCH (08:08)
[2018-05-21] MEDS: FENOFIBRATE 160 MG TABLET PO SCH (08:08)
[2018-05-21] MEDS: ASPIRIN CHEW 81 MG TABLET PO SCH (08:08)
[2018-05-21] MEDS: DOCUSATE SODIUM 100 MG CAPSULE PO SCH ×2 (08:08→08:18)
[2018-05-21] MEDS: ASCORBIC ACID 500 MG TABLET PO SCH ×2 (08:08→21:01)
[2018-05-21] MEDS: FERROUS SULFATE 325 MG TABLET PO SCH (08:10)
[2018-05-21] MEDS: CARVEDILOL 25 MG TABLET PO SCH ×2 (08:10→21:00)
[2018-05-21] MEDS: metFORMIN 500 MG TABLET PO SCH ×2 (08:10→21:00)
[2018-05-21] MEDS: ROSUVASTATIN 20 MG TABLET PO SCH (08:10)
[2018-05-21] MEDS: sitaGLIPtin 25 MG TABLET PO SCH ×2 (08:11→21:00)
[2018-05-21] MEDS: SPIRONOLACTONE 50 MG TABLET PO SCH (08:11)
[2018-05-21] MEDS: CHLORHEXIDINE 0.12% ORAL RINSE 60 ML BOTTLE SWISH/SPIT SCH ×2 (08:17→21:01)
[2018-05-21] MEDS: LOSARTAN 25 MG TABLET PO SCH (08:17)
[2018-05-22] MEDS: ALBUTEROL 2.5 MG/3 ML NEB RESP TX SCH ×5 (02:00→20:52)
[2018-05-22 04:48] LABS: Basophils % 0.1 % (0.0-0.8); Eosinophils # 0.1 10*3/uL (0.0-0.87); Eosinophils % 1.1 % (0.00-10.9); Hematocrit 28.4 VOL% (35.7-47.0); Hemoglobin 8.8 GM/DL (12.0-16.0); Immature Granulocytes % 0.6 %; Immature Granulocytes Absolute 0.05 #; Lymphocytes # 2.4 10*3/uL (1.4-4.0); Lymphocytes % 29.3 % (21.3-54.2); Mean Corpuscular Hemoglobin 24 PG (27-34); Mean Corpuscular Volume 78.2 FL (87-102); Monocytes # 0.7 10*3/uL (0.11-0.8); Monocytes % 8.4 % (1.7-12.7); Neutrophils % 60.5 % (38.7-73.9); Platelet Count 253 T/CUMM (130-400); Red Blood Count 3.63 MC/CUMM (3.8-5.5); Red Cell Distribution Width 13.6 % (9.3-17.3); White Blood Count 8.3 T/CUMM (4-12)
[2018-05-22 05:17] LABS: Alanine Aminotransferase 26 U/L (13-56); Albumin 2.7 G/DL (3.4-5.0); Alkaline Phosphatase 52 U/L (45-117); Aspartate Amino Transferase 22 U/L (0-37); Bilirubin,Indirect 0.5 MG/DL (0.0-1.0); Blood Urea Nitrogen 7 MG/DL (7-18); Calcium 8.9 MG/DL (8.5-10.1); Glucose 189 MG/DL (74-106); Osmolality,Calculated 281.4 MOS/KG (273-304); Sodium 140 MMOL/L (136-145); Total Protein 6.4 G/DL (6.4-8.3)
[2018-05-22] MEDS: ALUMINUM/MAGNES/SIMETH MAX STR 30 ML UDCUP PO PRN (06:23)
[2018-05-22] MEDS: metFORMIN 500 MG TABLET PO SCH ×2 (09:03→21:16)
[2018-05-22] MEDS: ASPIRIN CHEW 81 MG TABLET PO SCH (09:03)
[2018-05-22] MEDS: sitaGLIPtin 25 MG TABLET PO SCH ×2 (09:03→21:20)
[2018-05-22] MEDS: ROSUVASTATIN 20 MG TABLET PO SCH (09:03)
[2018-05-22] MEDS: FENOFIBRATE 160 MG TABLET PO SCH (09:04)
[2018-05-22] MEDS: ASCORBIC ACID 500 MG TABLET PO SCH ×2 (09:04→21:16)
[2018-05-22] MEDS: CARVEDILOL 25 MG TABLET PO SCH ×2 (09:04→21:16)
[2018-05-22] MEDS: PANTOPRAZOLE 40 MG TABLET PO SCH (09:04)
[2018-05-22] MEDS: FERROUS SULFATE 325 MG TABLET PO SCH (09:04)
[2018-05-22] MEDS: SPIRONOLACTONE 50 MG TABLET PO SCH (09:05)
[2018-05-22] MEDS: LOSARTAN 25 MG TABLET PO SCH (09:06)
[2018-05-22] MEDS: CHLORHEXIDINE 0.12% ORAL RINSE 60 ML BOTTLE SWISH/SPIT SCH ×2 (09:06→21:23)
[2018-05-22] MEDS: DOCUSATE SODIUM 100 MG CAPSULE PO SCH (09:06)
[2018-05-22] MEDS: INSULIN REGULAR 100 UNIT/ML SUBCUT SCH ×4 (09:14→21:16)
[2018-05-22] MEDS ORDERED: LOPERAMIDE 2 MG CAPSULE PO PRN (10:34)
[2018-05-23] MEDS: ALBUTEROL 2.5 MG/3 ML NEB RESP TX SCH ×3 (00:48→07:11)
[2018-05-23 04:33] LABS: Basophils % 0.3 % (0.0-0.8); Eosinophils # 0.1 10*3/uL (0.0-0.87); Eosinophils % 0.9 % (0.00-10.9); Hematocrit 30.1 VOL% (35.7-47.0); Hemoglobin 9.4 GM/DL (12.0-16.0); Immature Granulocytes % 0.6 %; Immature Granulocytes Absolute 0.05 #; Lymphocytes % 23.1 % (21.3-54.2); Mean Corpuscular HGB Conc 31.2 GM/DL (32-36); Mean Corpuscular Hemoglobin 24 PG (27-34); Mean Corpuscular Volume 77.6 FL (87-102); Mean Platelet Volume 9.8 FL (9.6-12.0); Monocytes # 0.8 10*3/uL (0.11-0.8); Monocytes % 8.6 % (1.7-12.7); Neutrophils # 5.9 10*3/uL (1.4-7.4); Neutrophils % 66.5 % (38.7-73.9); Platelet Count 312 T/CUMM (130-400); Red Blood Count 3.88 MC/CUMM (3.8-5.5); Red Cell Distribution Width 13.6 % (9.3-17.3); White Blood Count 8.8 T/CUMM (4-12)
[2018-05-23 04:55] LABS: Alanine Aminotransferase 21 U/L (13-56); Albumin 2.9 G/DL (3.4-5.0); Alkaline Phosphatase 49 U/L (45-117); Aspartate Amino Transferase 18 U/L (0-37); Bilirubin,Indirect 0.4 MG/DL (0.0-1.0); Blood Urea Nitrogen 7 MG/DL (7-18); Calcium 8.8 MG/DL (8.5-10.1); Glucose 171 MG/DL (74-106); Osmolality,Calculated 280.4 MOS/KG (273-304); Potassium 3.8 MMOL/L (3.5-5.1); Sodium 140 MMOL/L (136-145); Total Protein 6.7 G/DL (6.4-8.3)
[2018-05-23 08:14] VITALS: BP 108/62
[2018-05-23] MEDS: ASCORBIC ACID 500 MG TABLET PO SCH (08:56)
[2018-05-23] MEDS: FERROUS SULFATE 325 MG TABLET PO SCH (08:56)
[2018-05-23] MEDS: ASPIRIN CHEW 81 MG TABLET PO SCH (08:56)
[2018-05-23] MEDS: ROSUVASTATIN 20 MG TABLET PO SCH (08:57)
[2018-05-23] MEDS: SPIRONOLACTONE 50 MG TABLET PO SCH (08:57)
[2018-05-23] MEDS: CARVEDILOL 25 MG TABLET PO SCH (08:57)
[2018-05-23] MEDS: FENOFIBRATE 160 MG TABLET PO SCH (08:57)
[2018-05-23] MEDS: metFORMIN 500 MG TABLET PO SCH (08:57)
[2018-05-23] MEDS: PANTOPRAZOLE 40 MG TABLET PO SCH (08:57)
[2018-05-23] MEDS: sitaGLIPtin 25 MG TABLET PO SCH (08:57)
[2018-05-23] MEDS: INSULIN REGULAR 100 UNIT/ML SUBCUT SCH (09:00)
[2018-05-23] MEDS: LOSARTAN 25 MG TABLET PO SCH (09:01)
[2018-05-23] MEDS: DOCUSATE SODIUM 100 MG CAPSULE PO SCH (09:01)
[2018-05-23] MEDS: CHLORHEXIDINE 0.12% ORAL RINSE 60 ML BOTTLE SWISH/SPIT SCH (11:25)
== END 2018-05-23 11:42 | disposition home or self-care (01) | DRG 234 ==
LOC: N.ED 04:36 → SUATTDRO 06:10 → N.EDINP 06:10 → N.CC 07:42 → N.TELES 05-16 10:26 → N.CVR 05-17 07:43 → N.TELES 05-18 16:07
PROVIDERS: ADMIT Family Medicine